=== PATIENT | male | born 1995 | race Caucasian/White ===

== ENCOUNTER 2017-08-18 00:05 | Observation (INO) | payer BC ==
[~2017-08-18] VITALS: Ht 180.3 cm; Wt 70.3 kg
[2017-08-18] MEDS ORDERED: KETOROLAC TROMETHAMINE 30 MG/ML VIAL IV STA (01:33)
[2017-08-18] MEDS ORDERED: ONDANSETRON INJ 2 MG/ML 2 ML VIAL IV STA (01:33)
[2017-08-18] MEDS ORDERED: LORAZEPAM 2 MG/ML 1 ML VIAL IV PRN ×3 (01:45→08:15)
[2017-08-18] MEDS ORDERED: SODIUM CHLORIDE 0.9% 1000ML 1,000 ML IV ONE (01:45)
[2017-08-18 01:53] LABS: URINE APPEARANCE CLEAR (CLEAR); URINE BILIRUBIN NEG (NEG); URINE COLOR YELLOW; URINE NITRITE NEG (NEG); URINE SPECIFIC GRAVITY 1.018 (1.000-1.030); UROBILINOGEN NEG (NEG)
[2017-08-18 01:54] LABS: MANUAL MICROSCOPIC REQUIRED? NO; REVIEW REQ? NO
[2017-08-18 01:58] LABS: BASO % 0.1 %; BASO ABS # 0.02 K/uL (0-0.2); COMPLETE YES; EOS % 0.1 %; HEMATOCRIT 46.5 % (42-52); IG% 0.3 %; LYMPH % 7.3 %; LYMPH ABS # 1.14 K/uL (1.2-3.4); MEAN CELL VOLUME 92.3 fL (80-100); MEAN CORPUSCULAR HEMOGLOBIN 32.9 pg (25-34); MEAN CORPUSCULAR HGB CONC 35.7 g/dl (32-36); MEAN PLATELET VOLUME 8.5 fL (7.4-10.4); MONO % 8.9 %; NEUT % 83.3 %; PLATELET COUNT 276 K/uL (130-400); RED BLOOD COUNT 5.04 M/uL (4.7-6.1); WHITE BLOOD COUNT 15.68 K/uL (4.8-10.8)
[2017-08-18 02:09] LABS: INR 0.9 (0.9-1.1); PARTIAL THROMBOPLASTIN RATIO 0.9; PROTHROMBIN TIME (PATIENT) 9.9 SECONDS (9.0-12.0)
[2017-08-18 02:09] LABS: BENZODIAZEPINE, URINE NEG (NEG); COCAINE,URINE NEG (NEG); PHENCYCLIDINE, URINE NEG (NEG)
[2017-08-18 02:23] LABS: BUN/CREATININE RATIO 13.5 (10-20); CALCIUM 9.8 mg/dl (8.5-10.1); CREATININE 1.08 mg/dl (0.60-1.40); MAGNESIUM 2.8 mg/dl (1.8-2.4); POTASSIUM 3.4 mmol/L (3.5-5.1)
[2017-08-18 02:33] LABS: ALB/GLOB RATIO 1.2 (0.9-2); THYROID STIMULATING HORMONE 3.12 uIu/ml (0.300-4.500)
[2017-08-18] MEDS ORDERED: LORAZEPAM 2 MG/ML 1 ML VIAL IV ONE (03:45)
[2017-08-18] MEDS ORDERED: GADAVIST IV PRN (05:00)
--- NOTE | 2017-08-18 06:26 | DIAGNOSTIC IMAGING REPORT ---
L SHOULDER MIN 2 VIEWS ROUTINE CLINICAL HISTORY: left shoulder pain pain COMPARISON: None. DISCUSSION: The bones and joint spaces appear intact. There is no evidence of fracture, dislocation or bony disease. There is no evidence for soft tissue swelling. IMPRESSION: Negative study. The above report was generated using voice recognition software. It may contain grammatical, syntax or spelling errors. Electronically signed by: Anjum Gutiérrez M.D. 08/18/2017 6:25 AM Dictated Date/Time: 08/18/2017 6:24 AM
--- NOTE | 2017-08-18 06:47 | DIAGNOSTIC IMAGING REPORT ---
L SHOULDER MIN 2 VIEWS ROUTINE CLINICAL HISTORY: Dislocation status post reduction COMPARISON: Earlier in the day. DISCUSSION: 2 views reveal no acute fractures. There is no dislocation demonstrated on the provided 2 views. It should be noted that an axillary view was not obtained. IMPRESSION: No fractures or dislocations identified on this 2 view study Electronically signed by: Roger Valadez M.D. 08/18/2017 6:45 AM Dictated Date/Time: 08/18/2017 6:44 AM
--- NOTE | 2017-08-18 06:53 | DIAGNOSTIC IMAGING REPORT ---
CT SCAN OF THE BRAIN WITHOUT IV CONTRAST CLINICAL HISTORY: Seizure. COMPARISON STUDY: No priors. TECHNIQUE: Unenhanced axial CT scan of the brain is performed from the vertex to the skull base. A dose lowering technique was utilized adhering to the principles of ALARA. CT DOSE: 537.48 mGy.cm FINDINGS: Brain parenchyma: The brain parenchyma is normal in appearance. There is no hemorrhage, mass effect, or evidence of acute territorial ischemia by CT criteria. Mora-white matter is preserved. No extra-axial fluid collection is seen. Ventricles, sulci, cisterns: Normal in configuration. Intracranial vasculature: The visualized intracranial vasculature at the skull base is normal in appearance. Calvarium: Unremarkable. Sinuses and mastoids: There is opacification of a right ethmoid sinus. The remaining visualized paranasal sinuses are clear. The mastoid air cells are well pneumatized. Orbits: The bony orbits are grossly intact. IMPRESSION: No acute intracranial abnormality. Electronically signed by: Jose Miguel Bustillos M.D. 08/18/2017 6:52 AM Dictated Date/Time: 08/18/2017 6:50 AM
--- NOTE | 2017-08-18 07:43 | DIAGNOSTIC IMAGING REPORT ---
MRI OF THE BRAIN COMBO CLINICAL HISTORY: Seizure. COMPARISON STUDY: CT of the brain dated 08/18/2017. TECHNIQUE: MRI of the brain was performed utilizing various T1 and T2-weighted sequences in the axial, sagittal, and coronal planes. Contrast-enhanced sequences were acquired following the administration of 8 cc of Gadavist. The examination is performed using the seizure protocol. The examination is modestly degraded by motion artifact. FINDINGS: Brain parenchyma: The brain parenchyma is normal in appearance. There is no hemorrhage or mass effect. There is no restricted diffusion to suggest acute ischemia. No enhancing mass lesion is identified on the postcontrast images. Mora-white matter differentiation is preserved. No extra-axial fluid collection is seen. The cerebellar tonsils are normal in configuration. The above can probably are normal and symmetric. Ventricles, sulci, and cisterns: Normal in configuration. Pituitary and sella: Unremarkable. Intracranial vasculature: Normal flow voids are maintained at the skull base. Orbits: The bony orbits are grossly intact. Orbital contents are normal in appearance. Sinuses and mastoids: Mucosal thickening is seen in the left maxillary antrum and the right ethmoid sinus. The remaining paranasal sinuses and the mastoid air cells are clear. Calvarium: Unremarkable. Cervical cord: Partially visualized cervical spinal cord is normal in morphology and signal intensity. IMPRESSION: No acute intracranial abnormality. Electronically signed by: Jose Miguel Bustillos M.D. 08/18/2017 7:41 AM Dictated Date/Time: 08/18/2017 6:54 AM
--- NOTE | 2017-08-18 07:52 | EMERGENCY ROOM VISIT NOTE ---
History First contact with patient: 00:20 Chief Complaint: SHOULDER DISLOCATION Stated Complaint: LT SHOULDER DISLOCATION History of Present Illness The patient is a 22 year old male who presents to the Emergency Room with complaints of a dislocated left shoulder. The patient states that he initially dislocated the shoulder this morning just after waking up. He states that he felt a "pop" and immediate pain. He evidently was able to manipulate his arm back into position. The patient went through the rest of the day with some mild discomfort in the shoulder. He then had another episode of "dislocating" the shoulder this evening, however he was not able to put it back into position with this particular episode. The patient had 10/10 pain in the shoulder, and asked his roommates to take him to the emergency department. Evidently in the car the patient had a witnessed seizure episode and was post ictal on arrival. The patient was assisted from his vehicle by nursing, who report the patient was very lethargic and unable to answer questions. The patient himself denies that he had a seizure. He does not have a history of seizures. He states that he did smoke marijuana this morning but denies other drug use. He is otherwise reportedly healthy and does report a mild headache, which he attributes to not eating or drinking well today. He has not taken anything [id number] for her symptoms. Review of Systems More than 10 systems were reviewed and otherwise negative with the exception of history of present illness. Past Medical/Surgical History No chronic medical disease Family History No pertinent family history Social History Smoking Status: Never Smoker Occupation Status: [employer] student Current/Historical Medications No Active Prescriptions or Reported Meds Physical Exam Vital Signs Date Time Temp Pulse Resp B/P (MAP) Pulse Ox O2 Delivery O2 Flow Rate FiO2 08/18/17 06:00 103 18 136/83 96 Room Air 08/18/17 05:13 98 16 122/97 96 Room Air 08/18/17 04:05 89 18 134/78 96 Room Air 08/18/17 03:00 91 18 130/87 94 Room Air 08/18/17 02:26 91 18 146/84 95 Room Air 08/18/17 01:54 95 Room Air 08/18/17 01:54 95 Room Air 08/18/17 01:54 95 Room Air 08/18/17 01:54 107 18 118/77 95 Room Air 08/18/17 00:43 109 08/18/17 00:11 36.6 92 17 156/79 97 Room Air Physical Exam VITALS: Vitals are noted on the nurse's note and reviewed by myself. Vital signs stable. GENERAL: White male who appears slow to answer questions. He is mildly confused , but does eventually answer questions appropriately. GCS 15. HEAD: Normocephalic atraumatic. EARS: External ear normal. External auditory canals clear, tympanic membranes pearly mora without erythema or effusion bilaterally. EYES: Pupils equal round and reactive to light and accommodation. Conjunctivae without injection, sclerae without icterus. Extraocular movements intact. NOSE: Patent, turbinates without inflammation or discharge. MOUTH: Mucous membranes moist. Tonsils are not enlarged. Pharynx without erythema, blood, or exudate. Uvula midline. Airway patent. NECK: Supple without nuchal rigidity. No lymphadenopathy. No thyromegaly. Cervical spine is nontender. HEART: Regular rate and rhythm without murmurs gallops or rubs. LUNGS: Clear to auscultation bilaterally without wheezes, rales or rhonchi. No retractions or accessory muscle use. ABDOMEN: Positive normal bowel sounds x 4. Soft, nontender, without masses or organomegaly. No guarding or rebound tenderness. MUSCULOSKELETAL: Significant tenderness appreciated around the left shoulder. The patient has guarding in this area. He refuses range of motion secondary to discomfort. NEURO: Patient was alert and oriented to person place and time. CN II through XII grossly intact. Medical Decision & Procedures ER Provider Diagnostic Interpretation: L SHOULDER MIN 2 VIEWS ROUTINE CLINICAL HISTORY: left shoulder pain pain COMPARISON: None. DISCUSSION: The bones and joint spaces appear intact. There is no evidence of fracture, dislocation or bony disease. There is no evidence for soft tissue swelling. IMPRESSION: Negative study. L SHOULDER MIN 2 VIEWS ROUTINE CLINICAL HISTORY: Dislocation status post reduction COMPARISON: Earlier in the day. DISCUSSION: 2 views reveal no acute fractures. There is no dislocation demonstrated on the provided 2 views. It should be noted that an axillary view was not obtained. IMPRESSION: No fractures or dislocations identified on this [address] SCAN OF THE BRAIN WITHOUT IV CONTRAST CLINICAL HISTORY: Seizure. COMPARISON STUDY: No priors. TECHNIQUE: Unenhanced axial CT scan of the brain is performed from the vertex to the skull base. A dose lowering technique was utilized adhering to the principles of ALARA. CT DOSE: 537.48 mGy.cm FINDINGS: Brain parenchyma: The brain parenchyma is normal in appearance. There is no hemorrhage, mass effect, or evidence of acute territorial ischemia by CT criteria. Mora-white matter is preserved. No extra-axial fluid collection is seen. Ventricles, sulci, cisterns: Normal in configuration. Intracranial vasculature: The visualized intracranial vasculature at the skull base is normal in appearance. Calvarium: Unremarkable. Sinuses and mastoids: There is opacification of a right ethmoid sinus. The remaining visualized paranasal sinuses are clear. The mastoid air cells are well pneumatized. Orbits: The bony orbits are grossly intact. Preliminary Findings Only See Final Report For Complete Findings MRI HEAD : No ICH, mass effect or edema. No foci of acute ischemia. No abnormal foci of signal or enhancement in the brain parenchyma. Hippocampi are unremarkable. Trace mucosal thickening left maxillary sinus. Laboratory Results 08/18/17 01:50 Red Blood Count 5.04, Mean Corpuscular Volume 92.3, Mean Corpuscular Hemoglobin 32.9, Mean Corpuscular Hemoglobin Concent 35.7, Mean Platelet Volume 8.5, Neutrophils (%) (Auto) 83.3, Lymphocytes (%) (Auto) 7.3, Monocytes (%) (Auto) 8.9, Eosinophils (%) (Auto) 0.1, Basophils (%) (Auto) 0.1, Neutrophils # (Auto) 13.07, Lymphocytes # (Auto) 1.14, Monocytes # (Auto) 1.39, Eosinophils # (Auto) 0.01, Basophils # (Auto) 0.02 08/18/17 01:50 Test 08/18/17 00:00 08/18/17 01:50 Urine Color YELLOW Urine Appearance CLEAR (CLEAR) Urine pH 5.0 (4.5-7.5) Urine Specific [place] 1.018 (1.000-1.030) Urine Protein 1+ (NEG) Urine Glucose (UA) NEG (NEG) Urine Ketones TRACE (NEG) Urine Occult Blood 1+ (NEG) Urine Nitrite NEG (NEG) Urine Bilirubin NEG (NEG) Urine Urobilinogen NEG (NEG) Urine Leukocyte Esterase NEG (NEG) Urine WBC (Auto) 1-5 /hpf (0-5) Urine RBC (Auto) 0-4 /hpf (0-4) Urine Hyaline Casts (Auto) 1-5 /lpf (0-5) Urine Epithelial Cells (Auto) 5-10 /lpf (0-5) Urine Bacteria (Auto) NEG (NEG) Urine Opiates Screen NEG (NEG) Urine Methadone, Qualitative NEG (NEG) Urine Barbiturates NEG (NEG) Urine Phencyclidine (PCP) Level NEG (NEG) Ur Amphetamine/Methamphetamine NEG (NEG) MDMA (Ecstasy) Screen NEG (NEG) Urine Benzodiazepines Screen NEG (NEG) Urine Cocaine Metabolite NEG (NEG) Urine Marijuana (THC) POS (NEG) White Blood Count 15.68 K/uL (4.8-10.8) Red Blood Count 5.04 M/uL (4.7-6.1) Hemoglobin 16.6 g/dL (14.0-18.0) Hematocrit 46.5 % (42-52) Mean Corpuscular Volume 92.3 fL (80-100) Mean Corpuscular Hemoglobin 32.9 pg (25-34) Mean Corpuscular Hemoglobin Concent 35.7 g/dl (32-36) Platelet Count 276 K/uL (130-400) Mean Platelet Volume 8.5 fL (7.4-10.4) Neutrophils (%) (Auto) 83.3 % Lymphocytes (%) (Auto) 7.3 % Monocytes (%) (Auto) 8.9 % Eosinophils (%) (Auto) 0.1 % Basophils (%) (Auto) 0.1 % Neutrophils # (Auto) 13.07 K/uL (1.4-6.5) Lymphocytes # (Auto) 1.14 K/uL (1.2-3.4) Monocytes # (Auto) 1.39 K/uL (0.11-0.59) Eosinophils # (Auto) 0.01 K/uL (0-0.5) Basophils # (Auto) 0.02 K/uL (0-0.2) RDW Standard Deviation 41.2 fL (36.4-46.3) RDW Coefficient of Variation 12.2 % (11.5-14.5) Immature Granulocyte % (Auto) 0.3 % Immature Granulocyte # (Auto) 0.05 K/uL (0.00-0.02) Prothrombin Time 9.9 SECONDS (9.0-12.0) Prothromb Time International Ratio 0.9 (0.9-1.1) Activated Partial Thromboplast Time 24.1 SECONDS (21.0-31.0) Partial Thromboplastin Ratio 0.9 Anion Gap 10.0 mmol/L (3-11) Est Creatinine Clear Calc Drug Dose 113.4 ml/min Estimated GFR () 113.1 Estimated GFR (Non- 97.6 BUN/Creatinine Ratio 13.5 (10-20) Calcium Level 9.8 mg/dl (8.5-10.1) Magnesium Level 2.8 mg/dl (1.8-2.4) Total Bilirubin 0.6 mg/dl (0.2-1) Aspartate Amino Transf (AST/SGOT) 40 U/L (15-37) Alanine Aminotransferase (ALT/SGPT) 47 U/L (12-78) Alkaline Phosphatase 106 U/L (45-117) Total Protein 8.9 gm/dl (6.4-8.2) Albumin 4.8 gm/dl (3.4-5.0) Globulin 4.1 gm/dl (2.5-4.0) Albumin/Globulin Ratio 1.2 (0.9-2) Thyroid Stimulating Hormone (TSH) 3.120 uIu/ml (0.300-4.500) Ethyl Alcohol mg/dL < 3.0 mg/dl (0-3) Medications Administered Medications (Trade) Dose Ordered Sig/Jone Route Start Time Stop Time Status Last Admin Dose Admin Ketorolac Tromethamine (Toradol Inj) 30 mg NOW STAT IV 08/18/17 01:33 08/18/17 01:37 DC 08/18/17 01:48 30 MG Sodium Chloride 1,000 ml @ 999 mls/hr Q1H1M ONCE IV 08/18/17 01:45 08/18/17 02:45 DC 08/18/17 01:49 999 MLS/HR Lorazepam (Ativan Inj) 1 mg ONE ONCE IV 08/18/17 03:45 08/18/17 03:46 DC 08/18/17 03:57 1 MG ED Course Physical exam and history were performed. Nursing notes, EMR, and Medication List were personally reviewed. Patient appears to have left shoulder pain from "dislocating" the joint earlier today. On examination the patient appears mildly confused and the nursing history is consistent with recent seizure with postictal phase. The patient denies that he had a seizure, implying that he "spontaneously" dislocated it. X-ray was performed and reviewed by myself and my attending as showing some widening of the glenohumeral joint very concerning for posterior dislocation. I discussed this finding with the patient, who continued to be more more lucid as time progressed. The patient was placed onto his abdomen, and with inferior manipulation of the left shoulder a distinct "pop" was appreciated in the left shoulder. The patient indicated that he full resolution of his left shoulder pain at this point, and he was able to move his arm without any difficulty. He did not have any numbness or paresthesias. Repeat x-ray was performed. I discussed further options of care with the patient, as I had significant concern that he may have had a seizure much earlier in the day. Because of this IV access was established and labs were obtained. The patient was hydrated and medicated as above. CT scan of the head was performed. The case was discussed with my attending, Dr. Galaviz, who also independently evaluated the patient. The patient blood work is as above and was reviewed. He does have a slightly elevated white blood cell count 15,000. He does not have a gross anemia or significant electrolyte imbalance. Lipase and transaminases are nondiagnostic. Drug of abuse screen was positive for marijuana. His other labs were fairly unremarkable. Out of concern for his symptoms we did elect to perform MRI here in the department. MRI is as above and is also without significant findings. I discussed the case at length with the on-call neurologist, Dr. Lara. The history is somewhat challenging as the patient and his friends are poor historians. From what I can determine the patient likely had 3 seizures throughout the day. The first unwitnessed seizure would have been this morning after smoking marijuana and caused the initial dislocation of the shoulder. The second unwitnessed seizure likely caused a repeat of the dislocation. Finally the patient had a third witnessed seizure in the car on the way over to the emergency department. The patient has essentially been in his bedroom all day today, and has a hard time reconciling the events of the day. Because of this the patient is not felt well for discharge. Recommendation by neurology was for an EEG before discharge. I discussed the case with the on-call admitting hospitalist, Dr. Cunningham, who agreed to evaluate the patient here in the department. Please see the hospitalist dictation for further patient course, plan, and disposition. The chart was completed utilizing [employer] Speech Voice Recognition Software. Grammatical errors, random word insertions, pronoun errors, and incomplete sentences are an occasional consequence of this system due to software limitations, ambient noise, and hardware issues. Any formal questions or concerns about the content, text, or information contained within the body of this dictation should be directly addressed to the provider for clarification. . Medical Decision Differential diagnosis: Etiologies such as infection, hypoglycemia, electrolyte abnormalities, cardiac sources, intracerebral event, trauma, toxicologic, neurologic, as well as others were entertained. Impression Primary Impression: Seizure Additional Impression: Posterior dislocation of left shoulder joint Departure Information Prescriptions No Active Prescriptions or Reported Meds Referrals [facility] (PCP) Patient Instructions [facility] Problem Qualifiers
[2017-08-18] MEDS ORDERED: ONDANSETRON INJ 2 MG/ML 2 ML VIAL IV PRN (08:15)
[2017-08-18] MEDS ORDERED: ACETAMINOPHEN 325 MG TAB PO PRN (08:15)
[2017-08-18] MEDS ORDERED: MAGNESIUM HYDROXIDE SUSP 30 ML UDC PO PRN (08:15)
[2017-08-18] MEDS ORDERED: ALUMINUM/MAGNESIUM/SIMETH (MAALOX MAX) 30 ML UDC PO PRN (08:15)
[2017-08-18] MEDS ORDERED: POLYETHYLENE (MIRALAX) 17 GM PACK PO PRN (08:15)
[2017-08-18] MEDS ORDERED: OXYCODONE HCL IR 5 MG TAB (IMMEDIATE RELEASE) PO PRN (08:30)
[2017-08-18] MEDS ORDERED: IV FLUIDS COMPLETED PRN (08:45)
--- NOTE | 2017-08-18 09:29 | HISTORY & PHYSICAL EXAMINATION ---
DATE OF ADMISSION: 08/18/2017 REASON FOR OBSERVATION: Possible seizure. HISTORY OF PRESENT ILLNESS: Mr. Jurado is a 22[place]-old [employer]. He reported initially to the ER with concern of dislocated shoulder. The patient states that in the morning of the , he woke up and he felt his shoulder was dislocated. It is unclear how he felt this as he has not had a previous injury to the shoulder. He states that he felt a pop and pain. He is unable to move his arm and he felt that it moved back into position. Rest of the day, he had some minor discomfort in the shoulder; however, in the evening, his shoulder popped out again and he felt particular pain. His roommates urged him to come to the Emergency Department. On route to the Emergency Department, he reportedly had an episode in the car, where he was arching his back and foaming at the mouth and was not responded to his roommate. The patient was described as being postictal in the Emergency Department documentation on arrival. The patient, when he did regain orientation, did not recall the event. The patient does not have any history of previous seizures or family history of seizures. The patient, however, is a high stress person and has been stressed recently due to his scholastic performance. Of note, he does have an exam on the 18 of August. The patient reportedly drank 1 alcohol containing drink and smoked marijuana on the evening prior to this event. The patient states that the marijuana he smoked, he had smoked the same supply in the last week and has not had any problems after smoking it. He denies taking other drugs. His mixed drink was made in front of him and it was not from a punchbowl and he believes that everything put in the mixed drink was from the appropriate label containers and there is no chance of other surreptitious ingestions. He currently is awake, alert and appropriate. He does have some left shoulder pain. He has a sling in place. He has no other complaints or problems. PAST MEDICAL HISTORY: For asthma and seasonal allergies. These both have been quiescent. PAST SURGICAL HISTORY: He has had no surgery. MEDICATIONS: The patient does not take any medications. SOCIAL HISTORY: Socially as mentioned, he lives in a fraternity. He drinks alcohol on a variable amount. He may have a drink every day. He has never had problems with stopping it or withdrawal. He smokes tobacco occasionally. He smokes marijuana occasionally and denies other drug use. IMMUNIZATIONS: Up-to-date far as his immunizations. He has not had the influenza vaccine. FAMILY HISTORY: Positive for renal cell carcinoma and diabetes in his parents and Parkinson's disease in his grandparents. REVIEW OF SYSTEMS: Ten systems were reviewed and are negative with the exception of shoulder pain and discomfort and psychologically having anxiety. PHYSICAL EXAMINATION: GENERAL: He is a pleasant gentleman. He is slightly tremulous. He is awake, alert and appropriate. VITAL SIGNS: He is afebrile. His pulse is 90s. His blood pressure is slightly elevated at 149/88. O2 sat 97% on room air. Respiratory rate 17. HEENT: PERRL, EOMI. Oropharynx is clear. NECK: Without lymphadenopathy. There is no rigidity or meningeal signs. HEART: Tachycardic. Regular without murmurs, clicks, rubs or gallops. LUNGS: Clear without wheezes or crackles. Good air movement. ABDOMEN: Normoactive bowel sounds. Soft, nontender, and nondistended. No organomegaly. No bruits. EXTREMITIES: Good peripheral pulses. No cyanosis, clubbing or edema. NEUROLOGIC: He is slightly anxious. Cranial nerves II through XII are intact. Equal symmetrical strength and sensation in the upper and lower extremities. PSYCHOLOGICALLY: As mentioned, he does not appear to be depressed, but he does appear to be anxious. SKIN: Without lesions, growths, bruises or bleeding. LABORATORY DATA: White count of 15, H&H is 16 and 46, and platelet count is 276. His potassium is slightly low at 3.4. His magnesium is slightly up at 2.8. His AST is slightly up at 40, which could be his alcohol ingestion. His total protein and globulin are also slightly up. Coagulation studies are negative. Urinalysis shows trace blood in his urine. Toxicology shows a positive marijuana, sent for confirmation. He did have both x-rays of shoulder, showing good alignment after reduction in the ER. He has had a head CT and an MRI of his head, which was unremarkable for structural brain disease. ASSESSMENT: A 22-year-old male with possible seizure. PLAN: For possible seizure, this is likely situational based upon stressors in his life and possible drug use. The patient will have urgent EEG and consultation by neurology. PEller.n. lorazepam will be available if seizures recur. For his left shoulder dislocation, he will be remained in a sling and he will have p.r.n. Tylenol and oxycodone. Hematuria. Although this could be from events in the car, an outpatient repeat urinalysis will be warranted, especially given his family history of renal cell carcinoma. Substance abuse. The patient was counseled at length in the ER to stop and encouraged to see [facility] substance abuse counseling on campus. Likewise, he was counseled about tobacco use and abuse and similarly offered directions to supportive care. DVT prevention is early ambulation.
[2017-08-18] MEDS ORDERED: POTASSIUM CHLORIDE 20 MEQ TABCR PO SCH (11:00)
[2017-08-18 11:22] VITALS: BP 152/82; PULSE 98; TEMP 37.1; O2SAT 98; Ht 180.3 cm; Wt 70.3 kg
--- NOTE | 2017-08-18 13:27 | Discharge Instructions ---
Discharge Instructions Date of Service Aug 18, 2017. Admission Reason for Admission: Possible Seizure Discharge Discharge Diagnosis / Problem: seizure ruled out Discharge Goals Goal(s): Diagnostic testing, Therapeutic intervention Activity Recommendations Activity Limitations: as noted below Lifting Limitations: until after follow-up appointment (no intentional exercise until follow up, wear sling at all times) Please do not smoke marijuana, for next few weeks, Consider following up with [facility] for discussion about treatment of your anxiety . Current Hospital Diet Patient's current hospital diet: Regular Diet Discharge Diet Recommended Diet: Regular Diet Pending Studies Studies pending at discharge: no Medical Emergencies . Who to Call and When: Medical Emergencies: If at any time you feel your situation is an emergency, please call 911 immediately. . Non-Emergent Contact Non-Emergency issues call your: Primary Care Provider Call Non-Emergent contact if: temperature is above 101, your pain is unusual for you . . "Provider Documentation" section prepared by Rodolfo Cunningham. . VTE Core Measure Inpt VTE Proph given/why not?: Treatment not indicated
--- NOTE | 2017-08-18 14:35 | ELECTROENCEPHALOGRAPH REPORT ---
REQUESTING: Rodolfo Cunningham MD. CLINICAL DIAGNOSIS: Possible seizures. ELECTROENCEPHALOGRAM DIAGNOSIS: Essentially normal during wakefulness. DESCRIPTION OF TRACING: This EEG was obtained as a bedside recording. Unfortunately, video analysis of patient movement and behavior was not transmitted to the computerized record and was not available for reviewing. Photic stimulation was performed. Hyperventilation was not. Drowsiness and light sleep were not recorded. Under these conditions, there is a normal background rhythm in the alpha range of up to 10 Hz of maximum frequency and 30 microvolts of maximum amplitude. This is maximum posterior head regions bilaterally symmetrical. Polymorphic mid frequency theta activity modest voltage is seen over all head regions without clear focal or regional predominance. Anterior head region maximum bilaterally symmetrical low voltage fast activity in the beta range is present. number of muscle movement artifact or artifact appearing discharges throughout the tracing but no unequivocal potentially epileptogenic discharges were seen. Photic stimulation provoked some modest driving response without a photomyogenic or photoparoxysmal component. INTERPRETATION: This EEG reveals essentially normal without evidence for focal or generalized encephalopathy and without evidence for potentially epileptogenic activity but the absence of the latter does not exclude the diagnosis of seizure disorder and clinical correlation is required.
[2017-08-18 15:02] VITALS: BP 148/90; PULSE 87; TEMP 36.8; O2SAT 96
--- NOTE | 2017-08-18 16:04 | Neurology Progress Notes ---
Neurology Progress Note Date of Service Aug 18, 2017. Archana Santiago is a 22 year old male who is a health mgt student at [employer] who was brought to the ER after he dislocated his shoulder. On the way to the hospital he had an episode that was reported to be a loss of conscience and jerking movements in the car. he states he really doesn't remember the trip in the hospital but he remembers waking in the ER his buddies bed side. When he awoke he did know where he was and the people around him. prior to this he had not eaten and he was smoking marijuana and had a drink which he states he didn't finish the night prior. He has a history of anxiety that is not treated with medication. no other medical issues, no other drug abuse. denies being sleep deprived. Objective Date Time Temp Pulse Resp B/P (MAP) Pulse Ox O2 Delivery O2 Flow Rate FiO2 08/18/17 15:02 36.8 87 18 148/90 (109) 96 Room Air 08/18/17 11:22 37.1 98 18 152/82 98 Room Air 08/18/17 10:24 36.6 99 20 132/81 94 08/18/17 10:11 99 20 94 Room Air 08/18/17 10:01 132/81 08/18/17 09:41 103 17 95 Room Air 08/18/17 09:36 95 20 96 Room Air 08/18/17 09:31 153/77 08/18/17 09:06 97 22 97 Room Air 08/18/17 09:01 146/81 08/18/17 08:41 94 21 96 Room Air 08/18/17 08:32 148/97 08/18/17 08:16 96 08/18/17 08:11 99 25 97 Room Air 08/18/17 08:06 98 17 97 Room Air 08/18/17 08:01 149/88 08/18/17 07:31 118/76 08/18/17 07:05 102 94 Room Air 08/18/17 07:01 144/84 08/18/17 06:35 110 97 Room Air 08/18/17 06:31 138/80 08/18/17 06:05 102 95 Room Air 08/18/17 06:01 136/83 08/18/17 06:00 103 18 136/83 96 Room Air 08/18/17 05:35 100 95 Room Air 08/18/17 05:31 150/83 08/18/17 05:13 98 16 122/97 96 Room Air 08/18/17 05:12 122/97 08/18/17 04:05 89 18 134/78 96 Room Air 08/18/17 03:57 134/78 08/18/17 03:35 92 23 08/18/17 03:31 132/81 08/18/17 03:05 98 12 96 08/18/17 03:01 130/87 08/18/17 03:00 91 18 130/87 94 Room Air 08/18/17 02:35 93 15 97 08/18/17 02:31 132/84 08/18/17 02:26 91 18 146/84 95 Room Air 08/18/17 02:24 146/84 08/18/17 01:54 95 Room Air 08/18/17 01:54 95 Room Air 08/18/17 01:54 95 Room Air 08/18/17 01:54 107 18 118/77 95 Room Air 08/18/17 01:51 118/77 08/18/17 01:05 90 08/18/17 00:43 109 08/18/17 00:35 114 15 08/18/17 00:11 36.6 92 17 156/79 97 Room Air Last 24 Hours Test 08/18/17 00:00 08/18/17 01:50 Urine Color YELLOW Urine Appearance CLEAR Urine pH 5.0 Urine Specific [place] 1.018 Urine Protein 1+ Urine Glucose (UA) NEG Urine Ketones TRACE Urine Occult Blood 1+ Urine Nitrite NEG Urine Bilirubin NEG Urine Urobilinogen NEG Urine Leukocyte Esterase NEG Urine WBC (Auto) 1-5 /hpf Urine RBC (Auto) 0-4 /hpf Urine Hyaline Casts (Auto) 1-5 /lpf Urine Epithelial Cells (Auto) 5-10 /lpf Urine Bacteria (Auto) NEG Urine Opiates Screen NEG Urine Methadone, Qualitative NEG Urine Barbiturates NEG Urine Phencyclidine (PCP) Level NEG Ur Amphetamine/Methamphetamine NEG MDMA (Ecstasy) Screen NEG Urine Benzodiazepines Screen NEG Urine Cocaine Metabolite NEG Urine Marijuana (THC) POS White Blood Count 15.68 K/uL Red Blood Count 5.04 M/uL Hemoglobin 16.6 g/dL Hematocrit 46.5 % Mean Corpuscular Volume 92.3 fL Mean Corpuscular Hemoglobin 32.9 pg Mean Corpuscular Hemoglobin Concent 35.7 g/dl Platelet Count 276 K/uL Mean Platelet Volume 8.5 fL Neutrophils (%) (Auto) 83.3 % Lymphocytes (%) (Auto) 7.3 % Monocytes (%) (Auto) 8.9 % Eosinophils (%) (Auto) 0.1 % Basophils (%) (Auto) 0.1 % Neutrophils # (Auto) 13.07 K/uL Lymphocytes # (Auto) 1.14 K/uL Monocytes # (Auto) 1.39 K/uL Eosinophils # (Auto) 0.01 K/uL Basophils # (Auto) 0.02 K/uL RDW Standard Deviation 41.2 fL RDW Coefficient of Variation 12.2 % Immature Granulocyte % (Auto) 0.3 % Immature Granulocyte # (Auto) 0.05 K/uL Prothrombin Time 9.9 SECONDS Prothromb Time International Ratio 0.9 Activated Partial Thromboplast Time 24.1 SECONDS Partial Thromboplastin Ratio 0.9 Sodium Level 136 mmol/L Potassium Level 3.4 mmol/L Chloride Level 104 mmol/L Carbon Dioxide Level 22 mmol/L Anion Gap 10.0 mmol/L Blood Urea Nitrogen 15 mg/dl Creatinine 1.08 mg/dl Est Creatinine Clear Calc Drug Dose 113.4 ml/min Estimated GFR () 113.1 Estimated GFR (Non- 97.6 BUN/Creatinine Ratio 13.5 Random Glucose 131 mg/dl Calcium Level 9.8 mg/dl Magnesium Level 2.8 mg/dl Total Bilirubin 0.6 mg/dl Aspartate Amino Transf (AST/SGOT) 40 U/L Alanine Aminotransferase (ALT/SGPT) 47 U/L Alkaline Phosphatase 106 U/L Total Protein 8.9 gm/dl Albumin 4.8 gm/dl Globulin 4.1 gm/dl Albumin/Globulin Ratio 1.2 Thyroid Stimulating Hormone (TSH) 3.120 uIu/ml Ethyl Alcohol mg/dL < 3.0 mg/dl Imaging: MRI brain combo- No acute intracranial abnormality. shoulder xray- No fractures or dislocations identified on this 2 view study EEG- This EEG reveals essentially normal without evidence for focal or generalized encephalopathy and without evidence for potentially epileptogenic activity but the absence of the latter does not exclude the diagnosis of seizure disorder and clinical correlation is required. Exam: Physical Exam: Constitutional: appearance nourished, healthy and normal Ears, Nose, Mouth and Throat: mucous membranes moist, no injection and skin normal, eyes normal Cardiovascular: normal S-1 and S-2 and regular rate and rhythm Respiratory: clear to auscultation (CTA) and no rales, rhonchi or wheeze Musculoskeletal: no peripheral edema and good distal pulses Skin: no stigmata of neurocutaneous disease noted and normal and intact, multiple tatoos Eyes: extraocular muscles intact (EOMI) and pupils equal, round and reactive to light (PERRL) NEUROLOGIC EXAMINATION: Mental status: Alert and interactive Oriented to full date and location Oriented to person Speech fluent with no evidence of aphasia Cranial Nerves smile eye brow raise tongue midline Reflexes: Deep tendon reflexes were symmetrical and graded 2/5. Plantar responses were flexor. Sensory: cool or light touch Coordination: Romberg absent, finger to nose without bi pass Gait/Stance: Posture normal. Gait normal: with steady with steps, base, turning, heel and toe walking and tandem gait. Motor: Negative for pronator drift of out stretched arms with eyes closed. Strength: biceps triceps hand associate director of nursing 5/5 bilaterally, hip flex plantar flex ext 5/5 bilaterally Current Inpatient Medications Medications (Trade) Dose Ordered Sig/Jone Route Start Time Stop Time Status Last Admin Dose Admin Gadobutrol (Gadavist) 8 mmol UD PRN IV 08/18/17 05:00 08/22/17 04:59 Acetaminophen (Tylenol Tab) 650 mg Q4H PRN PO 08/18/17 08:15 09/17/17 08:14 Al Hydrox/Mg Hydrox/Simethicone (Maalox Max Susp) 15 ml Q4H PRN PO 08/18/17 08:15 09/17/17 08:14 Magnesium Hydroxide (Milk Of Magnesia Susp) 30 ml Q6H PRN PO 08/18/17 08:15 09/17/17 08:14 Polyethylene (Miralax Powder Packet) 17 gm DAILY PRN PO 08/18/17 08:15 09/17/17 08:14 Ondansetron HCl (Zofran Inj) 4 mg Q6H PRN IV 08/18/17 08:15 09/17/17 08:14 Lorazepam (Ativan Inj) 1 mg Q4H PRN IV 08/18/17 08:15 09/17/17 08:14 Lorazepam (Ativan Inj) 0.5 mg Q4H PRN IV 08/18/17 08:15 09/17/17 08:14 Oxycodone HCl (Roxicodone Immediate Rel Tab) 10 mg Q6 PRN PO 08/18/17 08:30 09/01/17 08:29 Miscellaneous (Iv Fluids Completed) 1 ea PRN PRN N/A 08/18/17 08:45 08/18/18 08:44 Potassium Chloride (Klor-Con Tab) 20 meq BID PO 08/18/17 11:00 08/19/17 09:01 08/18/17 11:50 20 MEQ Impression 22 year old male s/p shoulder dislocation and seizure activity Plan 1. EEG no seizure activity 2. MRI no structural abnormalities or acute findings 3. no driving for 6 months 4. no swimming or bathing alone or heights 5. EtOH and marijuana use counselling 6. further recommendations to follow I have discussed above patient with Dr Dulce Maria Zavala, neurology PT was dc before I arrived. I reviewed case with Dr Cunningham who had interviewed pt and spoke to pt mother. The mechanism of the first shoulder dislocation is unknown. Pt had been smoking marijuana. The second dislocation sounds if it occurred spontaneously, ie no fall and the seizure was witnessed as pt was in the back of a car, from the pack train driver. The pt clearly sounded post- ictal by the description I obtained from the PA that admitted him. MRI, EEG, were nonrevealing and I have reviewed them. WBC was mildly elevated which could be consistent with sz. Agree with no treatment for sz at present. We will see the pt in office and explore history as to whether there could have been an initial sz the resulted in the shoulder dislocation. Dr Cunningham advised the pt not to drive and counseled him re substance use. CLIFTON Zavala MD
[2017-08-18 16:28] VITALS: BP 148/90; PULSE 87; TEMP 36.8; O2SAT 96
--- NOTE | 2017-08-18 17:18 | Discharge Summary ---
Discharge Summary Date of Service Aug 18, 2017. Discharge Summary Admission Date: Aug 18, 2017 at 08:14 Discharge Date: Aug 18, 2017 Discharge Disposition: Home Principal Diagnosis: possible seizure unconfirmed Procedures: CT head, MRI brain, EEG all negative for structural change or seizure activity Medication Reconciliation Medication Profile: No Active Prescriptions or Reported Meds Discharge Exam Review of Systems: Constitutional: No fever, No chills Respiratory: No cough, No sputum Cardiovascular: No chest pain, No orthopnea Abdomen: No pain Musculoskeletal: + joint pain, + muscle pain Neurologic: No memory loss, No paralysis, No weakness, No numbness/tingling Physical Exam: General Appearance: WD/WN, no apparent distress Neck: supple, no JVD Respiratory/Chest: chest non-tender, lungs clear, normal breath sounds Cardiovascular: regular rate, rhythm, no murmur Abdomen / GI: normal bowel sounds, non tender, soft Extremities: no pedal edema, normal range of motion Neurologic/Psychiatric: alert, oriented x 3 Hospital Course 22-year-old who presented after an episode in his friend's car which appeared to be a seizure to his friend, the patient admits increasing stress for recent exam smoking marijuana drinking alcohol. Next Patient evaluation which included CT scan of his head MRI of his brain EEG all which were unremarkable for concern of recurrent seizures. The patient was instructed not to smoke marijuana. The patient also suffered a posterior shoulder dislocation as a splint in place from the ER after was reduced he has no neurological symptoms of minor pain in the shoulder. The patient will be referred to [facility] for follow-up of his posterior shoulder dislocation was encouraged not have any physical activity for the time until now and then he follows up with them. He is also recommended for counseling regarding substance abuse and anxiety. I phoned his mom, Altagracia, explained these finds to her at his request. Total Time Spent: Greater than 30 minutes This includes examination of the patient, discharge planning, medication reconciliation, and communication with other providers. Discharge Instructions Please refer to the electronic Patient Visit Report (Discharge Instructions) for additional information.
== END 2017-08-18 17:00 | disposition home or self-care (01) ==
LOC: C.EDB 00:07 → C.MS2W 08:14 → ENRESERV 08:43
PROVIDERS: ADMIT Internal Medicine; ATTEND Internal Medicine
DX: S43.005A Unspecified dislocation of left shoulder joint, initial encounter (principal); X58.XXXA Exposure to other specified factors, initial encounter; F12.90 Cannabis use, unspecified, uncomplicated; R51 Headache